=== PATIENT | female | born 1985 | race Native Hawaiian/Other Pacific Islander ===

== ENCOUNTER 2016-12-23 08:00 | Outpatient (CLI) | payer OTHER | END 2016-12-23 08:01 | disposition home or self-care (01) | DX: Z01.84 Encounter for antibody response examination (principal) ==

== ENCOUNTER 2017-11-03 08:00 | Outpatient (CLI) | payer OTHER | END 2017-11-03 08:01 | disposition home or self-care (01) | LOC: LAB.R 08:00 | PROVIDERS: ATTEND Obstetrics & Gynecology | DX: Z36.9 Encounter for antenatal screening, unspecified (principal) | CPT/HCPCS: 87491; 87591 ==

== ENCOUNTER 2017-12-09 08:00 | Outpatient (CLI) | payer OTHER ==
[2017-12-09 18:59] LABS: BASOPHILS # (AUTO) 0.1 10^3/uL (0.0-0.1); BASOPHILS % (AUTO) 0.5 %; EOSINOPHILS # (AUTO) 0.1 10^3/uL (0.0-0.7); EOSINOPHILS % (AUTO) 1.1 %; HGB - HEMOGLOBIN 12.8 g/dL (12.0-16.0); LYMPHOCYTES # (AUTO) 3.2 10^3/uL (1.5-3.5); LYMPHOCYTES % (AUTO) 24.8 %; MEAN CORPUSCULAR HEMOGLOBIN 29.9 pg (27.0-31.0); MEAN CORPUSCULAR HGB CONC 33.8 g/dL (32.0-36.0); MEAN CORPUSCULAR VOLUME 88.7 fL (81.0-99.0); MEAN PLATELET VOLUME 7.5 fL (7.9-10.8); MONOCYTES # (AUTO) 0.4 10^3/uL (0.0-1.0); MONOCYTES % (AUTO) 3.3 %; NEUTROPHILS % (AUTO) 70.3 %; PLT - PLATELET COUNT 351 10^3/uL (130-450); RED BLOOD COUNT 4.28 10^6/uL (4.20-5.40); RED CELL DISTRIBUTION WIDTH 12.9 % (12.0-15.0); WHITE BLOOD COUNT 12.8 x10^3/uL (4.8-10.8)
[2017-12-09 19:01] LABS: BILIRUBIN,URINE NEGATIVE (NEGATIVE); GLUCOSE, URINE (UA) NEGATIVE (NEGATIVE); KETONES,URINE (UA) NEGATIVE (NEGATIVE); LEUKOCYTE ESTERASE, URINE NEGATIVE (NEGATIVE); NITRITE,URINE NEGATIVE (NEGATIVE); OCCULT BLOOD,URINE TRACE-LYSE (NEGATIVE); PROTEIN,URINE NEGATIVE (NEGATIVE); UROBILINOGEN,URINE 0.2 (NORMAL) E.U./dL (NORMAL)
[2017-12-09 19:02] LABS: CLARITY,URINE CLEAR (CLEAR)
[2017-12-09 19:29] LABS: BACTERIA,URINE Rare /HPF (None Seen); RBC,URINE 0-5 /HPF (0-5); SQUAMOUS EPITHELIAL CELL,UR MOD Squamous (<= Few)
[2017-12-10 13:28] LABS: HEPATITIS B SURFACE ANTIGEN NON-REACTIVE (NON-REACTIVE); HEPATITIS C ANTIBODY NON-REACTIVE (NON-REACTIVE)
[2017-12-10 13:51] LABS: HIV AG/AB 4TH GEN NON-REACTIVE (NON-REACTIVE)
== END 2017-12-09 08:01 | disposition home or self-care (01) ==
LOC: LAB.N 08:00
PROVIDERS: ATTEND Obstetrics & Gynecology
DX: Z36.9 Encounter for antenatal screening, unspecified (principal); Z3A.08 8 weeks gestation of pregnancy
CPT/HCPCS: 36415; 81001; 81599; 85025; 86592; 86762; 86803; 86850; 86900; 86901; 87340; 87389

== ENCOUNTER 2018-01-28 12:09 | Outpatient (CLI) | payer OTHER ==
--- NOTE | 2018-01-30 14:50 | Ultrasound Report ---
OB ULTRASOUND: 01/28/2018 HISTORY: For screening. TECHNIQUE: Real-time scanning was performed with call center representative static images obtained. LAST MENSTRUAL PERIOD: 09/05/2017 Clinical Age: 20 weeks 5 days US Age: 21 weeks 1 day EFW Hadlock: 404 grams EFW% Hadlock: 70% Heart Rate: 150 bpm EDC: 06/12/2018 (LMP) US EDC: 06/09/2018 BPD Hadlock: 20 weeks 6 days; Mean mm 49 HC Hadlock: 21 weeks 0 days; Mean mm 187 AC Hadlock: 20 weeks 6 days; Mean mm 158 FL Hadlock: 21 weeks 4 days; Mean mm 36 Presentation: cephalic Placental Location: posterior Cervical Length: TA 4.4 cm Amniotic Fluid: subjectively normal; MVP 4.5 cm FINDINGS There is a single intrauterine gestation in cephalic presentation. heart rate 150 beats/min. Posterior placenta. The relationship of the placental edge and the cervix are not well seen due to head position and [place] contractions. Amniotic fluid volume is visually normal. Age by last menstrual period 20 weeks 5 days, concordant with the age by composite ultrasound measurements today of 21 weeks 1 day. MATTHIAS based on LMP is 06/12/2018. The intracranial contents, facial structures, spine, heart and outflow tracts, diaphragm, stomach, kidneys, bladder, 3-vessel cord and cord insertions, and all 4 extremities are well seen and no abnormalities are identified. The cervix is long and closed 4.4 cm. Ovaries and adnexal structures are unremarkable. There is a questionable small anterior uterine fibroid measuring 1.2 x 0.6 x 1.6 cm. IMPRESSION SINGLE INTRAUTERINE GESTATION, AGE BY COMPOSITE ULTRASOUND MEASUREMENTS TODAY 21 WEEKS 1 DAY WITH MATTHIAS BASED ON LMP OF 06/12/2018. NO ANATOMIC ABNORMALITIES ARE SEEN. THE RELATIONSHIP OF THE PLACENTA TO THE CERVIX IS OBSCURED ON THIS STUDY. SUGGEST REPEAT IMAGING LATER IN THE FOR ASSESSMENT. TD: 01/28/2018 16:27 [email or web address]
== END 2018-01-28 12:10 | disposition home or self-care (01) ==
LOC: DI 12:09
PROVIDERS: ATTEND Obstetrics & Gynecology
DX: Z36.9 Encounter for antenatal screening, unspecified (principal)
CPT/HCPCS: 76811

== ENCOUNTER 2018-03-17 11:32 | Outpatient (CLI) | payer OTHER ==
[2018-03-17 19:05] LABS: HGB - HEMOGLOBIN 12.1 g/dL (12.0-16.0); MEAN CORPUSCULAR HEMOGLOBIN 30.6 pg (27.0-31.0); MEAN CORPUSCULAR VOLUME 92.6 fL (81.0-99.0); MEAN PLATELET VOLUME 7.8 fL (7.9-10.8); RED BLOOD COUNT 3.96 10^6/uL (4.20-5.40); RED CELL DISTRIBUTION WIDTH 12.3 % (12.0-15.0); WHITE BLOOD COUNT 8.9 x10^3/uL (4.8-10.8)
== END 2018-03-17 11:33 | disposition home or self-care (01) ==
LOC: LAB.N 11:32
PROVIDERS: ATTEND Registered Nurse
DX: Z36.89 Encounter for other specified antenatal screening (principal)
CPT/HCPCS: 36415; 82950; 85027; 86850

== ENCOUNTER 2018-04-21 15:49 | Outpatient (CLI) | END 2018-04-21 15:50 | disposition home or self-care (01) ==

== ENCOUNTER 2018-04-30 12:48 | Outpatient (CLI) | payer OTHER ==
--- NOTE | 2018-04-30 14:23 | Ultrasound Report ---
Procedure Date: 04/30/2018 Accession Number: [id number] / [id number] Procedure: US - OB F/U or Repeat CPT Code: FULL RESULT: EXAM: OB F/U or Repeat DATE: 04/30/2018 2:13 PM CLINICAL HISTORY: GROWTH SCAN TECHNIQUE: Real-time scanning was performed with dermatology sales representative static images obtained. COMPARISON: 01/28/2018 Clinical Age: 34 weeks 2 days US Age: 33 weeks 1 days EFW Hadlock: 2124 grams EFW % Hadlock: 25.75% Heart Rate: 138 bpm EDC: 06/09/2018 US EDC: 06/17/2018 BPD Hadlock: 34 weeks 0 days; Mean mm 85 HC Hadlock: 33 weeks 3 days; Mean mm 301 AC Hadlock: 32 weeks 6 days; Mean mm 288 FL Hadlock: 33 weeks 2 days; Mean mm 64 Presentation: Vertex Placental Location: Posterior Cervical Length: 4.15 cm Amniotic Fluid: LUKE 12.00 cm; MVP 3.64 cm FINDINGS: There is a single viable intrauterine gestation, in vertex presentation. heart rate is 138 BPM. The placenta is posterior, without evidence of previa. Amniotic fluid volume is normal, with an LUKE of 12. By size, the fetus measures 33 weeks 1 day (34 weeks 2 days by previous sonogram). Estimated weight by Hadlock method is 2124 g, 26th percentile for gestational age by previous sonogram. No free fluid or adnexal lesion is appreciated. IMPRESSION: Single viable intrauterine gestation, with expected growth from previous sonogram. Normal LUKE.
== END 2018-04-30 12:49 | disposition home or self-care (01) ==
LOC: DI 12:48
PROVIDERS: ATTEND Obstetrics & Gynecology
DX: Z34.93 Encounter for supervision of normal pregnancy, unspecified, third trimester (principal); L29.9 Pruritus, unspecified
CPT/HCPCS: 36415; 76816; 80076; 82239

== ENCOUNTER 2018-04-30 14:17 | Outpatient (CLI) | payer OTHER ==
[2018-04-30 15:53] LABS: ALBUMIN 2.9 g/dL (3.2-5.5); BILIRUBIN,DIRECT 0.1 mg/dL (0.1-0.5); BILIRUBIN,TOTAL 0.4 mg/dL (0.2-1.0); TOTAL PROTEIN 6.3 g/dL (6.7-8.2)
== END 2018-04-30 14:18 | disposition home or self-care (01) ==
LOC: LAB 14:17
PROVIDERS: ATTEND Obstetrics & Gynecology
DX: L29.9 Pruritus, unspecified (principal)
CPT/HCPCS: 36415; 80076; 82239

== ENCOUNTER 2018-05-04 16:52 | Outpatient (CLI) | payer OTHER ==
[2018-05-04 17:05] VITALS: BP 105/65
== END 2018-05-04 17:30 | disposition home or self-care (01) ==
LOC: WFO 16:52 → FBP 17:08 → WFO 17:30
PROVIDERS: ATTEND Obstetrics & Gynecology
DX: O26.613 Liver and biliary tract disorders in pregnancy, third trimester (principal); K83.1 Obstruction of bile duct; Z3A.34 34 weeks gestation of pregnancy
CPT/HCPCS: 59025

== ENCOUNTER 2018-05-06 13:36 | Outpatient (CLI) | payer OTHER ==
[2018-05-06 19:42] LABS: ALBUMIN 2.8 g/dL (3.2-5.5); BILIRUBIN,DIRECT 0.1 mg/dL (0.1-0.5); BILIRUBIN,TOTAL 0.6 mg/dL (0.2-1.0); TOTAL PROTEIN 6.7 g/dL (6.7-8.2)
== END 2018-05-06 13:37 | disposition home or self-care (01) ==
LOC: LAB.N 13:36
PROVIDERS: ATTEND Obstetrics & Gynecology
DX: L29.9 Pruritus, unspecified (principal)
CPT/HCPCS: 36415; 80076; 82239

== ENCOUNTER 2018-05-07 16:32 | Outpatient (CLI) | payer OTHER ==
[2018-05-07 16:55] VITALS: BP 102/64
[2018-05-07] MEDS ORDERED: BETAMETHASONE 30 MG/5 ML VIAL IM ONE (17:23)
--- NOTE | 2018-05-11 14:17 | Ultrasound Report ---
Procedure Date: 05/07/2018 Accession Number: [id number] / [id number] Procedure: US - OB Biophysical Profile CPT Code: FULL RESULT: EXAM: OB biophysical profile. DATE: 05/07/2018 5:50 PM CLINICAL HISTORY: decreased movement TECHNIQUE: Real-time scanning was performed with manufacturers representative static images obtained. COMPARISON: Reference is made to the obstetric ultrasound dated 04/30/2018. FINDINGS: Single live intrauterine in vertex presentation with a posterior placenta and amniotic fluid index of 11.9 with MVP of 3.5 cm, a heart rate of 133 bpm by M-mode Doppler. The fetus scores a biophysical profile score of 8 based on presence of breathing, movements and tone by criteria as well as the presence of an amniotic fluid pocket measuring at least 2 cm deep and 1 cm wide. IMPRESSION: Normal biophysical profile.
== END 2018-05-07 18:20 | disposition home or self-care (01) ==
LOC: WFO 16:32 → FBP 16:35 → WFO 18:20
PROVIDERS: ATTEND Obstetrics & Gynecology
DX: O26.613 Liver and biliary tract disorders in pregnancy, third trimester (principal); Z3A.34 34 weeks gestation of pregnancy
CPT/HCPCS: 59025; 76819

== ENCOUNTER 2018-05-08 17:36 | Outpatient (CLI) | payer OTHER ==
[2018-05-08] MEDS ORDERED: BETAMETHASONE 30 MG/5 ML VIAL IM ONE (17:44)
== END 2018-05-08 17:52 | disposition home or self-care (01) ==
LOC: WFO 17:36 → FBP 17:40 → WFO 17:52
PROVIDERS: ATTEND Obstetrics & Gynecology
DX: Z34.83 Encounter for supervision of other normal pregnancy, third trimester (principal)
CPT/HCPCS: 96372

== ENCOUNTER 2018-05-11 16:47 | Outpatient (CLI) | payer OTHER ==
[2018-05-11 17:01] VITALS: BP 98/65
== END 2018-05-11 17:15 | disposition home or self-care (01) ==
LOC: WFO 16:47 → FBP 16:48 → WFO 17:15
PROVIDERS: ATTEND Obstetrics & Gynecology
DX: O26.613 Liver and biliary tract disorders in pregnancy, third trimester (principal); Z3A.35 35 weeks gestation of pregnancy
CPT/HCPCS: 59025

== ENCOUNTER 2018-05-14 14:18 | Outpatient (CLI) | payer OTHER ==
--- NOTE | 2018-05-15 13:05 | Ultrasound Report ---
Procedure Date: 05/14/2018 Accession Number: [id number] / [id number] Procedure: US - OB F/U or Repeat CPT Code: FULL RESULT: EXAM: FOLLOW-UP OBSTETRICAL ULTRASOUND EXAM DATE: 05/14/2018 04:27 PM. CLINICAL HISTORY: Follow-up growth, cholestasis. COMPARISON: OB F/U OR REPEAT 04/30/2018 OB BIOPHYSICAL PROFILE 05/07/2018. TECHNIQUE: Real-time sonographic evaluation of the fetus performed by the licensed appraiser. Multiple medical billing representative static images were saved for review. DATING: Established EGA 36 weeks 2 days with MATTHIAS 06/09/2018 based on prior ultrasound 01/28/2018.. EGA 35 weeks 1 day with MATTHIAS 06/17/2018 based on the current ultrasound. GENERAL EVALUATION Henning . Cardiac activity: 140 bpm. movement: Visualized. Presentation: Cephalic. Placenta: Posterior position. Amniotic fluid: Normal. LUKE 8.5 cm. MVP 3.7 cm. BIOMETRY Bi-Parietal Diameter (BPD): 8.6 cm, 34 weeks 5 days. Head Circumference (HC): 31.7 cm, 35 weeks 5 days. Abdominal Circumference (AC): 30.9 cm, 34 weeks 6 days. Femur Length (FL): 6.9 cm, 35 weeks 2 days. Estimated Weight: 2586 gm, 22 percentile for 36 weeks 2 days. Previous estimated weight: 2124 gm on 04/30/2018. ANATOMY Not evaluated. MATERNAL STRUCTURES The cervical length measures 4.4 cm. IMPRESSION: 1. Henning live intrauterine with gestational age 36 weeks 2 days based on previously established dates. 2. Estimated weight is within expected limits for assigned dating. 3. Normal interval growth compared to 04/30/2018. RADIA
== END 2018-05-14 14:19 | disposition home or self-care (01) ==
LOC: DI 14:18
PROVIDERS: ATTEND Obstetrics & Gynecology
DX: Z36.2 Encounter for other antenatal screening follow-up (principal)
CPT/HCPCS: 76816

== ENCOUNTER 2018-05-15 08:00 | Outpatient (CLI) | payer OTHER | END 2018-05-15 08:01 | disposition home or self-care (01) | LOC: LAB.R 08:00 | PROVIDERS: ATTEND Obstetrics & Gynecology | DX: Z36.9 Encounter for antenatal screening, unspecified (principal) | CPT/HCPCS: 87081 ==

== ENCOUNTER 2018-05-18 16:54 | Outpatient (CLI) | payer OTHER ==
[2018-05-18 17:07] VITALS: BP 105/65
== END 2018-05-18 17:50 | disposition home or self-care (01) ==
LOC: WFO 16:54 → FBP 16:57 → WFO 17:50
PROVIDERS: ATTEND Obstetrics & Gynecology
DX: O26.613 Liver and biliary tract disorders in pregnancy, third trimester (principal); K83.1 Obstruction of bile duct; Z3A.36 36 weeks gestation of pregnancy
CPT/HCPCS: 59025

== ENCOUNTER 2018-05-22 06:03 | Inpatient (IN) | payer OTHER ==
[2018-05-22] MEDS ORDERED: SODIUM CHLORIDE FLUSH 0.9% 10 ML SYRINGE IVP PRN (10:49)
[2018-05-22] MEDS ORDERED: DINOPROSTONE 10 MG SUPP VG ONE (10:49)
[2018-05-22] MEDS ORDERED: ONDANSETRON 4 MG/2 ML VIAL IVP PRN (10:49)
--- NOTE | 2018-05-22 10:55 | HISTORY & PHYSICAL EXAMINATION ---
Admit History - Instructions [place]/Slash: -Left hand click circles element as positive or present. -Right hand click slashes element as negative or not present. - Visit Reason Visit Reason: Other (Cholistasis of pregnency) - : 2 Parity: 1 Premature: 0 Ectopic: 0 : 0 Care: positive: [facility] Risk/History: negative: Labor induction Complications This : positive: Other (cholistasis of pregnency) Smoking Status: Never smoker - Mother's Labs Mother's Blood Type: positive: O Mother's RH: positive: Positive GBS: positive: Group B Step Negative Rubella Status: positive: Immune Meds/Allgy - Allergies Allergies/Adverse Reactions: Allergies Allergy/AdvReac Type Severity Reaction Status Date / Time No Known Drug Allergies Allergy Verified 02/27/16 15:04 Review of Systems - Constitutional Constitutional: reports: Other (C/O itching of the soles of the feet. minimal itching of her palms of her hands) - Eyes Eyes: denies: Pain, Irritation, Blurred vision - Ears, Nose & Throat Ears, Nose & Throat: denies: Ear pain, Hearing loss, Hearing aids - Cardiovascular Cariovascular: denies: Irregular heart rate, Palpitations, Chest pain - Respiratory Respiratory: denies: Cough, Sputum production, Wheezing - Gastrointestinal Gastrointestinal: denies: Abdominal pain, Constipation, Diarrhea - Genitourinary Genitourinary: denies: Dysuria - Neurological Neurological: denies: General weakness, Focal weakness - Psychiatric Psychiatric: denies: Depression Physical - Abdominal Exam Vital Signs: Temp Pulse Resp BP Pulse Ox 36.6 C 78 18 103/67 98 05/22/18 06:54 05/22/18 06:54 05/22/18 06:54 05/22/18 06:54 05/22/18 06:54 Contraction Intensity: positive: Mild Uterine Resting Tone: positive: Soft - Monitoring Heart Rate Baseline: 130-145 Strip Review: positive: Category I - Presentation Presentation: positive: Vertex - Vaginal Exam Membranes: positive: Membranes intact Dilation (in cm): 2 Effacement (%): 25 Station: positive: -2 Cervical Position: positive: Midposition - Other Notes Labor Progress Note/Additional Text: Pt has the Dx of cholistasis of . is 37.0 weeks and here for induction. Plan for Labor - Plan For Labor I expect patient to be DC'd or transferred within 96 hours.: Yes Plan for Labor: Pt is a 32 YO EDC 06/12/2018. 37.0 weeks Dx of Cholestasis of Pregnency. with total bile acids of 58. N0-19. She C/O itching of the sols of the Feet. She is here for cervical ripening and Delivery. H&P dictated. [id number]
--- NOTE | 2018-05-22 12:40 | PREOP HISTORY & PHYSICAL ---
DATE OF SERVICE: 05/22/2018 Physician: Jake Hancock MD IDENTIFICATION: The patient is a 32-year-old, G2, P1 female whose EDC is 06/12/2018. This makes her 37.0 weeks. CHIEF COMPLAINT: Cholestasis of . HISTORY OF PRESENT ILLNESS: The patient presented with complaints of itching of the soles of her feet with minimal itching of the palms. She had a total bile acid drawn, which was 58; normal is 0-19. For this reason, the diagnosis of cholestasis of was made. She has previously had an infant at 39 weeks without any incident. Labor lasted about 12 hours. She had an epidural for labor analgesia. She had a vacuum delivery. She states that her infant is doing well at this time. The patient started her OB care at 8 weeks. She has had multiple regular visits and has been seen throughout the entire . Her heart rate has remained in the normal rate. She has had blood pressures which have also been in the 110s to 112s, with diastolics in the 60s to 70s. The remainder of her course has been unremarkable. PAST MEDICAL HISTORY: The patient denies any hypertensive, diabetic, cardiac or pulmonary disease. PAST SURGICAL HISTORY: None. ALLERGIES: NONE KNOWN. CURRENT MEDICATIONS: vitamins. HABITS: The patient denies the use of alcohol, tobacco, street or addictive drugs. SOCIAL HISTORY: The patient is . Lives in a safe, stable environment with her and . PHYSICAL EXAMINATION VITAL SIGNS: Blood pressure today is noted to be in the normal range. HEENT: Pupils equal, round. Extraocular muscles are intact. Thyroid is not palpably enlarged. HEART: Regular rate and rhythm without murmurs. LUNGS: Lung guzman are clear without rales or wheezes. ABDOMEN: Soft with a gravid uterus. Vertex by Aldo's. The liver is nontender. PELVIC: Reveals a cervix which is 2 cm, which is increased from one from the previous exam, she is about 50% effaced. The cervix is soft and is mid to posterior vertex presentation. Cervidil was placed posterior to the cervix for cervical ripening. IMPRESSION 1. A 32-year-old, G2, P1, female, 37 weeks estimated gestational age. 2. Cholestasis of . PLAN: Will cervical ripen and induce at this time since she is 37 weeks. TD: 05/22/2018 11:27
[2018-05-22] MEDS: ACETAMINOPHEN 325 MG TABLET PO PRN ×2 (13:33→19:54)
[2018-05-22] MEDS: SODIUM CHLORIDE FLUSH 0.9% 10 ML SYRINGE IVP SCH ×2 (18:16→22:56)
[2018-05-22 18:26] LABS: BASOPHILS # (AUTO) 0.1 10^3/uL (0.0-0.1); BASOPHILS % (AUTO) 0.6 %; EOSINOPHILS # (AUTO) 0.1 10^3/uL (0.0-0.7); EOSINOPHILS % (AUTO) 0.8 %; HGB - HEMOGLOBIN 12.4 g/dL (12.0-16.0); LYMPHOCYTES # (AUTO) 2.3 10^3/uL (1.5-3.5); LYMPHOCYTES % (AUTO) 21.1 %; MEAN CORPUSCULAR HEMOGLOBIN 28.6 pg (27.0-31.0); MEAN CORPUSCULAR HGB CONC 32.3 g/dL (32.0-36.0); MEAN CORPUSCULAR VOLUME 88.6 fL (81.0-99.0); MEAN PLATELET VOLUME 7.7 fL (7.9-10.8); MONOCYTES # (AUTO) 0.5 10^3/uL (0.0-1.0); MONOCYTES % (AUTO) 4.9 %; NEUTROPHILS % (AUTO) 72.6 %; PLT - PLATELET COUNT 307 10^3/uL (130-450); RED BLOOD COUNT 4.32 10^6/uL (4.20-5.40); RED CELL DISTRIBUTION WIDTH 12.5 % (12.0-15.0)
--- NOTE | 2018-05-22 22:10 | PROVIDER PROGRESS NOTE ---
Labor Progress Note - Uterine Monitoring Uterine Monitoring Mode: positive: External toco : 1-5 Contraction Intensity: positive: Moderate Uterine Resting Tone: positive: Soft - Monitoring Monitor Mode: positive: External ultrasound Heart Rate Baseline: 120 Heart Rate Variability: positive: Moderate (6-25 bmp) Accelerations: positive: Present, 15x15 Decelerations: positive: None - Vaginal Exam Dilation (in cm): 5 Effacement (%): 75 Station: -1 Cervical Position: Midposition - Labor Progress Note Labor Progress Note/Additional Text: Excellent ripening. Cervidel removed. will allow ambian if progresses Epidural. Start pit in the AM
[2018-05-22] MEDS ORDERED: ZOLPIDEM 5 MG TABLET PO PRN (22:40)
[2018-05-22] MEDS: fentaNYL 100 MCG/2 ML VIAL IVP PRN (22:56)
[2018-05-23] MEDS: fentaNYL 100 MCG/2 ML VIAL IVP PRN (03:09)
[2018-05-23] MEDS ORDERED: LACTATED RINGERS 1,000 ML IV ONE (03:09)
[2018-05-23] MEDS ORDERED: OXYTOCIN/SODIUM CHLORIDE 500 ML IV ONE (03:17)
[2018-05-23] MEDS ORDERED: LIDOCAINE 1% 50 ML MDV ONE (03:37)
[2018-05-23] MEDS ORDERED: WITCH HAZEL/GLYCERIN 1 EACH MED..PAD TOP PRN (04:03)
[2018-05-23] MEDS ORDERED: OXYTOCIN/SODIUM CHLORIDE 250 ML IV SCH (04:03)
[2018-05-23] MEDS ORDERED: HYDROCORTISONE/PRAMOXINE 10 GM PR PRN (04:03)
[2018-05-23] MEDS ORDERED: oxyCODONE 5 MG TABLET PO PRN (04:03)
[2018-05-23] MEDS ORDERED: HYDROCORTISONE 1% CREAM 28 GM TUBE PR PRN (04:03)
[2018-05-23] MEDS ORDERED: diphenhydrAMINE 25 MG CAPSULE PO PRN (04:03)
--- NOTE | 2018-05-23 04:10 | DELIVERY NOTE ---
Delivery Note - Labor Labor: positive: Other (cytotec induced) - Delivery Method Delivery Method: positive: Spontaneous vaginal delivery - Cervical Ripening Method Cervical Ripening Method: positive: Prostaglandin E2 - Presentation Presentation: positive: Vertex, SOREN - left occiput anterior - Nuchal Cord Nuchal Cord: positive: Present (one loose) - Anesthetic Anesthetic Type: Anesthetic: positive: Lidocaine - 1% plain Volume: positive: Other (30 ml) - Amniotic Fluid Description Amniotic Fluid Description: positive: Clear - Episiotomy Type Episiotomy Type: positive: None - Laceration Laceration: positive: 2nd degree - Suture Suture Type: positive: Vicryl Suture Size: positive: 3-0 - Delivery Outcome Delivery Outcome: positive: Livebirth - Matteson: positive: Placed in direct skin contact with mother, Bulb syringe, Stimulated Matteson sex: positive: Male - Cord Cord: positive: 3 vessels - Placenta Placenta: positive: Intact, Spontaneous - Estimated Blood Loss Estimated Blood Loss (in cc): 300 - Post Delivery Events Post Delivery Events: positive: No post delivery events - Delivery Comments (Free Text/Narrative) Delivery Comments (Free Text/Narrative): Pt had a cytotec cervical ripening at 11:00this AM it was removed at 2218. at that time her Cx was 5/75%/-1. She was allowed to labor with the intention of pacing an epidural. she was checked at 0300 and noted to be 7/100%/0. Calls were placed to Ob and Anaesthesia. I arrived at 0314 as the head was delivering. Head SOREN with a nucal cord times one which was reduced prior to delivery. cord stopped pulsating then cut. Placenta Delivered intact. Second degree laceration was repaired in layers with 3-0 vicril. Live Male infant Apgars 9/9, weight 6 lb 5.0 oz.
[2018-05-23] MEDS ORDERED: LACTATED RINGERS 1,000 ML IV SCH (05:00)
[2018-05-23] MEDS: IBUPROFEN 600 MG TABLET PO SCH ×4 (05:11→23:43)
[2018-05-23 06:44] LABS: HGB - HEMOGLOBIN 9.8 g/dL (12.0-16.0); MEAN CORPUSCULAR HEMOGLOBIN 28.8 pg (27.0-31.0); MEAN CORPUSCULAR HGB CONC 32.4 g/dL (32.0-36.0); MEAN CORPUSCULAR VOLUME 88.9 fL (81.0-99.0); MEAN PLATELET VOLUME 7.2 fL (7.9-10.8); RED BLOOD COUNT 3.41 10^6/uL (4.20-5.40); RED CELL DISTRIBUTION WIDTH 12.3 % (12.0-15.0); WHITE BLOOD COUNT 12.4 x10^3/uL (4.8-10.8)
[2018-05-23] MEDS: DOCUSATE SODIUM 100 MG CAPSULE PO SCH ×2 (08:06→19:53)
[2018-05-23] MEDS: ACETAMINOPHEN 325 MG TABLET PO PRN ×3 (08:07→19:53)
[2018-05-24] MEDS: ACETAMINOPHEN 325 MG TABLET PO PRN (04:16)
[2018-05-24] MEDS: IBUPROFEN 600 MG TABLET PO SCH (06:56)
[2018-05-24] MEDS: DOCUSATE SODIUM 100 MG CAPSULE PO SCH (09:00)
--- NOTE | 2018-05-24 09:38 | PROVIDER PROGRESS NOTE ---
Subjective - Prog Note Date Prog Note Date: 05/24/18 Prog Note Time: 09:36 - Subjective Pt reports feeling: Improved (0/10 pain voiding, eating, .) Objective - Vital Signs/Intake & Output Reviewed Vital Signs: Yes Vital Signs: Vital Signs x48h Temp Pulse Resp BP Pulse Ox 05/24/18 08:00 36.6 C 72 18 104/57 L 05/24/18 04:00 36.8 C 69 18 97/56 L 100 Intake & Output: Intake & Output 05/21/18 05/22/18 05/23/18 05/24/18 23:59 23:59 23:59 23:59 Intake Total 1510 Output Total 300 Balance 1210 - Objective General Appearance: positive: No acute distress, Alert Respiratory: positive: Chest non-tender, No respiratory distress, Breath sounds nml Cardiovascular: positive: Regular rate & rhythm, No murmur, No gallop Abdomen: positive: Non-tender, No organomegaly, Mass (u-3) - Lab Results Fish Bones: 05/23/18 06:34 Assessment/Plan - Problem List (1) (spontaneous vaginal delivery) Impression: Pt is doing excellent. will Discharge today.
--- NOTE | 2018-05-24 09:41 | Discharge Plan ---
Discharge Plan Disposition: 01 Home, Self Care Condition: Good Diet: Regular Activity Restrictions: Pelvic rest Shower Restrictions: No Driving Restrictions: No (No driving while on narcotics) Weight Bearing: Full Weight No Smoking: If you smoke, Please STOP! Call for help. Follow-up with: Jake Hancock MD [Provider Admit Priv/Credential] -
[2018-05-24 11:00] VITALS: BP 100/58
--- NOTE | 2018-05-24 16:36 | DISCHARGE SUMMARY ---
Physician: Jake Hancock MD DATE OF ADMISSION: 05/22/2018 DATE OF DISCHARGE: 05/24/2018 ADMITTING DIAGNOSES 1. A 37-week gestation. 2. Cholestasis of . DISCHARGE DIAGNOSES 1. A 37-week gestation. 2. Cholestasis of . 3. Nuchal cord PROCEDURE PERFORMED 1. Cervical ripening with Cervidil. 2. Spontaneous vaginal delivery. PRESENTING HISTORY: Patient is a 32-year-old G2, P1 female whose due date was 06/12/2018. This makes her 37 weeks. Her was complicated with itching of the soles of the feet as well as the palms of the hand. She had total bile acids drawn, which was 58 , normal was 0-19. For this reason, she had multiple NSTs and the decision to induce at 37 was made. On admission, her cervix was noted to be 2 cm, 25% and -1. LABORATORIES: On admission, her white count was 11, hemoglobin was 12.4, hematocrit was 38.2, platelets were 307. On the , her white count was 12.4, her hemoglobin was 9.8, hematocrit was 30.3, and platelets were 253. HOSPITAL COURSE: Patient is admitted. Cervidil was placed. She developed contractions which are mild in nature. Twelve hours later, her Cervidil was removed and at 3 in the morning, she reached complete and delivered a live male , Apgars 9 and 9, weighing 6 pounds and 5 ounces. There was a nuchal cord noted at time of delivery. Her blood loss was noted to be roughly 300 mL. Her course has been unremarkable. Her itching had resolved. Her pain is 0/10. She is being discharged to home. MEDICATIONS Discharge medications are those of: 1. Oxycodone 5 mg #10. 2. Motrin 600 mg #30. 3. Colace 100 mg #30. She has been instructed regarding and signs of mastitis. She has been informed that is not an adequate contraception. At this point, she is considering the use of Nexplanon for contraception. She will be following up in the office in 6 weeks. TD: 05/24/2018 09:52 IMAN
== END 2018-05-24 10:50 | disposition home or self-care (01) | DRG 775 ==
LOC: WFO 06:03 → FBP 06:27 → WFO 06:29 → FBP 06:30 → OBSVTOIN 23:42
PROVIDERS: ADMIT Obstetrics & Gynecology; ATTEND Obstetrics & Gynecology
PROC: 10E0XZZ Delivery of Products of Conception, External Approach (ICD-10-PCS; principal; 2018-05-23)
PROC: 0KQM0ZZ Repair Perineum Muscle, Open Approach (ICD-10-PCS; 2018-05-23)
DX: O26.62 Liver and biliary tract disorders in childbirth (principal); K83.1 Obstruction of bile duct; O69.81X0 Labor and delivery complicated by cord around neck, without compression, not applicable or unspecified; O70.1 Second degree perineal laceration during delivery; Z37.0 Single live birth; Z3A.37 37 weeks gestation of pregnancy
CPT/HCPCS: 36415; 59200; 82239; 85025; 85027; 96374

== ENCOUNTER 2019-06-15 08:00 | Outpatient (CLI) | payer OTHER ==
--- NOTE | 2019-06-16 08:22 | XRAY Report ---
Reason: CHEST PAIN Procedure Date: 06/15/2019 Accession Number: [id number] / [id number] Procedure: WCP - Chest 2 View X-Ray CPT Code: 14981 FULL RESULT: EXAM: CHEST RADIOGRAPHY 2 VIEWS EXAM DATE: 06/15/2019. CLINICAL HISTORY: Chest pain. COMPARISON: PA and lateral chest on 01/02/2017.. TECHNIQUE: PA and lateral views. FINDINGS: Lungs/Pleura: Normal vasculature. The lungs are clear. No pleural fluid or pneumothorax. Mediastinum: Normal cardiac and mediastinal contours. Bones: Minimal upper thoracic dextroconvex scoliosis, 8 degrees. IMPRESSION: No radiographic cardiopulmonary abnormality. No change in 01/02/2017. RADIA
== END 2019-06-15 23:59 | disposition home or self-care (01) ==
LOC: DI.WCP 08:00 → EDSTATUS 13:14 → DI.WCP 23:59
PROVIDERS: ATTEND Family Medicine
DX: R07.9 Chest pain, unspecified (principal)
CPT/HCPCS: 71046

== ENCOUNTER 2019-06-18 08:00 | Outpatient (CLI) | payer OTHER ==
[2019-06-18 12:52] LABS: BASOPHILS % (AUTO) 0.7 %; EOSINOPHILS # (AUTO) 0.1 10^3/uL (0.0-0.7); EOSINOPHILS % (AUTO) 2.1 %; HGB - HEMOGLOBIN 13.8 g/dL (12.0-16.0); LYMPHOCYTES # (AUTO) 2.5 10^3/uL (1.5-3.5); LYMPHOCYTES % (AUTO) 42.6 %; MEAN CORPUSCULAR HEMOGLOBIN 28.7 pg (27.0-31.0); MEAN CORPUSCULAR HGB CONC 32.1 g/dL (32.0-36.0); MEAN CORPUSCULAR VOLUME 89.4 fL (81.0-99.0); MEAN PLATELET VOLUME 9.6 fL (7.9-10.8); MONOCYTES # (AUTO) 0.3 10^3/uL (0.0-1.0); MONOCYTES % (AUTO) 4.8 %; NEUTROPHILS # (AUTO) 2.9 10^3/uL (1.5-6.6); NEUTROPHILS % (AUTO) 49.6 %; PLT - PLATELET COUNT 302 10^3/uL (130-450); RED BLOOD COUNT 4.81 10^6/uL (4.20-5.40); RED CELL DISTRIBUTION WIDTH 12.2 % (12.0-15.0); WHITE BLOOD COUNT 5.8 x10^3/uL (4.8-10.8)
[2019-06-18 13:29] LABS: ALBUMIN 4.3 g/dL (3.2-5.5); ALBUMIN/GLOBULIN RATIO 1.2 (1.0-2.2); ALKALINE PHOSPHATASE 56 IU/L (42-121); ALT ALANINE AMINOTRANSFERASE 14 IU/L (10-60); AST ASPARTATE AMINOTRANSFERASE 22 IU/L (10-42); BILIRUBIN,TOTAL 0.6 mg/dL (0.2-1.0); BUN - BLOOD UREA NITROGEN 10 mg/dL (6-20); CALCIUM 9.2 mg/dL (8.5-10.3); CARBON DIOXIDE - CO2 24 mmol/L (21-32); CHLORIDE 104 mmol/L (101-111); CHOL/HDL RATIO 1.8 (<4.4); CHOLESTEROL 131 mg/dL; CREATININE 0.5 mg/dL (0.4-1.0); GFR - MDRD 141 (>89); GLUCOSE 88 mg/dL (70-100); HDL CHOLESTEROL 73 mg/dL; LDL CHOLESTEROL,CALCULATED 45 mg/dL; LDL/HDL RATIO 0.6 (<4.4); SODIUM 140 mmol/L (135-145); TOTAL PROTEIN 7.9 g/dL (6.7-8.2); VLDL CHOLESTEROL 13 mg/dL
== END 2019-06-18 23:59 | disposition home or self-care (01) ==
LOC: LAB.WCP 08:00
PROVIDERS: ATTEND Family Medicine
DX: R07.9 Chest pain, unspecified (principal); R53.83 Other fatigue
CPT/HCPCS: 36415; 80053; 80061; 83721; 84443; 84702; 85025

== ENCOUNTER 2019-07-28 08:39 | Outpatient (CLI) | payer OTHER ==
--- NOTE | 2019-07-28 15:58 | CARDIAC PROCEDURE NOTE ---
DATE OF SERVICE: 07/28/2019 Physician: Radha Stanley MD, [facility] INDICATION: Chest pain. CARDIAC RISK FACTORS: None. DESCRIPTION OF PROCEDURE: After signing informed consent, the patient underwent a Fadi-protocol treadmill stress test with Echo imaging at rest and after exercise. Resting heart rate: 64. Peak heart rate: 182 (97% predicted maximum heart rate for age). Resting blood pressure: 110/80. Peak blood pressure: 120/80. The patient exercised for 4 minutes and 35 seconds on a Fadi-protocol treadmill stress test. She achieved a peak heart rate of 182 (97% predicted maximum heart rate for age) and 7.1 METs. The patient had mild to moderate shortness of breath at peak and rated her exertion at 13/20 on a Heavenly scale at peak. There was no chest discomfort during the entire test. Oxygen saturation at rest: 99%. Oxygen saturation at peak: 98%, then dropped to 91% in the supine position at peak heart rate (during Echo imaging). Oxygen saturation at 3 minutes of recovery, sittin%. RESTING ELECTROCARDIOGRAM: Normal sinus rhythm and early repolarization in leads V2 and V3. ELECTROCARDIOGRAM AT PEAK: T-wave flattening in leads II, III, aVF, and V2 through V6. These returned to baseline after 1 minute of recovery. SUMMARY 1. Normal resting electrocardiogram. 2. Fair exercise tolerance. 3. Abnormal desaturation at peak heart rate in the supine position (during Echo imaging). 4. Nonspecific EKG changes develop with exercise. 5. Echo images reported separately. 6. Patient's coronary risk: Low-moderate cc: Asif Nunez DO TD: 07/28/2019 15:37 [facility]
== END 2019-07-28 08:40 | disposition home or self-care (01) ==
LOC: DI 08:39
PROVIDERS: ATTEND Family Medicine
DX: R07.9 Chest pain, unspecified (principal)
CPT/HCPCS: 93350

== ENCOUNTER 2021-04-26 10:17 | Outpatient (CLI) | payer OTHER ==
[2021-04-26 17:53] LABS: BASOPHILS % (AUTO) 0.8 %; EOSINOPHILS # (AUTO) 0.1 10^3/uL (0.0-0.7); HCT - HEMATOCRIT 40.7 % (37.0-47.0); LYMPHOCYTES # (AUTO) 2.2 10^3/uL (1.5-3.5); LYMPHOCYTES % (AUTO) 44.9 %; MEAN CORPUSCULAR HEMOGLOBIN 29.7 pg (27.0-31.0); MEAN CORPUSCULAR HGB CONC 31.9 g/dL (32.0-36.0); MEAN CORPUSCULAR VOLUME 92.9 fL (81.0-99.0); MEAN PLATELET VOLUME 9.9 fL (7.9-10.8); MONOCYTES # (AUTO) 0.2 10^3/uL (0.0-1.0); MONOCYTES % (AUTO) 4.7 %; NEUTROPHILS # (AUTO) 2.4 10^3/uL (1.5-6.6); NEUTROPHILS % (AUTO) 48.4 %; PLT - PLATELET COUNT 284 10^3/uL (130-450); RED BLOOD COUNT 4.38 10^6/uL (4.20-5.40); RED CELL DISTRIBUTION WIDTH 12.2 % (12.0-15.0); WHITE BLOOD COUNT 4.9 x10^3/uL (4.8-10.8)
[2021-04-26 18:16] LABS: ALBUMIN 4.7 g/dL (3.2-5.5); ALBUMIN/GLOBULIN RATIO 1.5 (1.0-2.2); ALKALINE PHOSPHATASE 51 IU/L (42-121); ALT ALANINE AMINOTRANSFERASE 21 IU/L (10-60); AST ASPARTATE AMINOTRANSFERASE 26 IU/L (10-42); BILIRUBIN,TOTAL 1.1 mg/dL (0.2-1.0); BUN - BLOOD UREA NITROGEN 6 mg/dL (6-20); CALCIUM 9.3 mg/dL (8.5-10.3); CARBON DIOXIDE - CO2 27 mmol/L (21-32); CHLORIDE 104 mmol/L (101-111); CHOLESTEROL 141 mg/dL; CREATININE 0.6 mg/dL (0.4-1.0); GFR - MDRD 113 (>89); GLUCOSE 82 mg/dL (70-100); HDL CHOLESTEROL 71 mg/dL; LDL CHOLESTEROL,CALCULATED 50 mg/dL; LDL/HDL RATIO 0.7 (<4.4); POTASSIUM 3.6 mmol/L (3.5-5.0); SODIUM 137 mmol/L (135-145); TOTAL PROTEIN 7.9 g/dL (6.7-8.2); TRIGLYCERIDES 101 mg/dL; VLDL CHOLESTEROL 20 mg/dL
[2021-04-26 18:27] LABS: THYROID STIMULATING HORMONE 2.63 uIU/mL (0.34-5.60)
[2021-04-27 11:53] LABS: HEPATITIS B SURFACE ANTIGEN NON-REACTIVE (NON-REACTIVE)
[2021-04-27 12:06] LABS: HEPATITIS C ANTIBODY NON-REACTIVE (NON-REACTIVE)
== END 2021-04-26 23:59 | disposition home or self-care (01) ==
LOC: LAB.WCP 10:17
PROVIDERS: ATTEND Physician Assistant Medical
DX: Z00.00 Encounter for general adult medical examination without abnormal findings (principal); R53.83 Other fatigue; K52.9 Noninfective gastroenteritis and colitis, unspecified
CPT/HCPCS: 36415; 80053; 80061; 81599; 82306; 82607; 83516; 83721; 84443; 85025; 86255; 86317; 86704; 86709; 86803; 87340

== ENCOUNTER 2022-07-01 15:35 | Emergency (ER) | payer OTHER ==
[2022-07-01 15:59] LABS: BASOPHILS # (AUTO) 0.1 10^3/uL (0.0-0.1); BASOPHILS % (AUTO) 0.8 %; EOSINOPHILS # (AUTO) 0.1 10^3/uL (0.0-0.7); EOSINOPHILS % (AUTO) 1.8 %; HCT - HEMATOCRIT 39.9 % (37.0-47.0); HGB - HEMOGLOBIN 13.7 g/dL (12.0-16.0); LYMPHOCYTES # (AUTO) 2.3 10^3/uL (1.5-3.5); LYMPHOCYTES % (AUTO) 35.4 %; MEAN CORPUSCULAR HEMOGLOBIN 30.7 pg (27.0-31.0); MEAN CORPUSCULAR HGB CONC 34.3 g/dL (32.0-36.0); MEAN CORPUSCULAR VOLUME 89.5 fL (81.0-99.0); MEAN PLATELET VOLUME 9.1 fL (7.9-10.8); MONOCYTES # (AUTO) 0.3 10^3/uL (0.0-1.0); NEUTROPHILS # (AUTO) 3.7 10^3/uL (1.5-6.6); NEUTROPHILS % (AUTO) 56.8 %; PLT - PLATELET COUNT 294 10^3/uL (130-450); RED BLOOD COUNT 4.46 10^6/uL (4.20-5.40); RED CELL DISTRIBUTION WIDTH 11.2 % (12.0-15.0); WHITE BLOOD COUNT 6.6 x10^3/uL (4.8-10.8)
--- NOTE | 2022-07-01 16:11 | XRAY Report ---
PROCEDURE: Chest 1 View X-Ray INDICATIONS: Chest pain TECHNIQUE: One view of the chest was acquired. COMPARISON: None. FINDINGS: Surgical changes and devices: None. Lungs and pleura: No pleural effusions or pneumothorax. Lungs are clear. Mediastinum: Mediastinal contours appear normal. Heart size is normal. Bones and chest wall: No suspicious bony lesions. Overlying soft tissues appear unremarkable. IMPRESSION: No acute cardiopulmonary abnormality. Reviewed by: Gavin Wiggins MD on 07/01/2022 3:10 PM ROM[facility]N Approved by: Gavin Wiggins MD on 07/01/2022 3:10 PM ROM[facility]N Station ID: [id number]
[2022-07-01 16:16] LABS: ALBUMIN 4.5 g/dL (3.2-5.5); ALBUMIN/GLOBULIN RATIO 1.3 (1.0-2.2); CALCIUM 9.4 mg/dL (8.5-10.3); CREATININE 0.6 mg/dL (0.4-1.0); POTASSIUM 3.4 mmol/L (3.5-5.0)
--- NOTE | 2022-07-01 17:00 | ED Physician Documentation ---
PD HPI DYSPNEA - Stated complaint Stated Complaint: SOA - Chief complaint Chief Complaint: Cardiac - History obtained from History obtained from: Patient - History of Present Illness Timing - onset: Last night Timing - onset during: Sleep Timing - duration: Weeks (has noted feeling of dyspnea with lying down at night the past 7-10 days, worse the past 2 nights. feels okay getting up in morning and no dyspnea with activity during day. Feeling of tightness and pressure on chest lying. NO recent URI. no edema.) Timing - details: Gradual onset, Intermittant Inciting event(s): No: URI, Immobilization/travel Improved by: Sitting up Worsened by: Laying flat. No: Exertion Associated symptoms: Chest pain / discomfort. No: Fever, Cough, Hemoptysis, Wheezing, Palpitations, Bilateral edema Similar symptoms before: Has not had sx before Recently seen: Not recently seen Review of Systems Constitutional: denies: Fever, Chills Nose: reports: Rhinorrhea / runny nose. denies: Congestion Throat: denies: Sore throat Respiratory: reports: Dyspnea, Cough (mild nonproductive) GI: denies: Nausea, Vomiting, Diarrhea Skin: denies: Rash, Lesions Musculoskeletal: denies: Extremity swelling Neurologic: denies: Generalized weakness, Near syncope PD PAST MEDICAL HISTORY - Past Medical History Cardiovascular: None Respiratory: None Neuro: None Endocrine/Autoimmune: None - Present Medications Home Medications: Ambulatory Orders Medication Instructions Recorded Confirmed Famotidine [Pepcid] 20 mg PO BID #20 tablet 07/01/22 dexAMETHasone [Decadron] 4 mg PO DAILY #5 tablet 07/01/22 - Allergies Allergies/Adverse Reactions: Allergies Allergy/AdvReac Type Severity Reaction Status Date / Time No Known Drug Allergies Allergy Verified 07/01/22 15:45 - Living Situation Living Situation: reports: With spouse/s.o. Living Arrangement: reports: At home - Social History Does the pt smoke?: No Smoking Status: Never smoker Does the pt drink ETOH?: No Does the pt have substance abuse?: No PD ED PE NORMAL - Vitals Vital signs reviewed: Yes - General General: Alert and oriented X 3, No acute distress, Well developed/nourished - HEENT HEENT: Moist mucous membranes, Pharynx benign - Neck Neck: Supple, no meningeal sign, No adenopathy - Cardiac Cardiac: RRR, No murmur, No rub - Respiratory Respiratory: No respiratory distress, Clear bilaterally - Abdomen Abdomen: Soft, Non tender - Derm Derm: Normal color, Warm and dry - Extremities Extremities: No tenderness to palpate, Normal ROM s pain, No edema, No calf tenderness / cord - Neuro Neuro: Alert and oriented X 3, No motor deficit, No sensory deficit, Normal speech - Psych Psych: Normal mood, Normal affect Results - Vitals Vitals: Oxygen O2 Source Room air - EKG (time done) 15:43 Rate: Rate (enter#) (67) Rhythm: NSR [place]: Normal Intervals: Normal [place] QRS: Normal Ischemia: Normal ST segments. No: ST elevation c/w ischemia, ST depression Compare to prior EKG: Old EKG unavailable - Labs Labs: Laboratory Tests 07/01/22 07/01/22 07/01/22 15:54 15:54 15:54 WBC 6.6 RBC 4.46 Hgb 13.7 Hct 39.9 MCV 89.5 MCH 30.7 MCHC 34.3 RDW 11.2 L Plt Count 294 MPV 9.1 Neut # (Auto) 3.7 Lymph # (Auto) 2.3 [place] # (Auto) 0.3 Eos # (Auto) 0.1 Baso # (Auto) 0.1 Absolute Nucleated RBC 0.00 Nucleated RBC % 0.0 Sodium 138 Potassium 3.4 L Chloride 103 Carbon Dioxide 27 Anion Gap 8.0 BUN 11 Creatinine 0.6 Estimated GFR (MDRD) 112 Glucose 99 Calcium 9.4 Total Bilirubin 1.0 AST 23 ALT 18 Alkaline Phosphatase 53 Troponin I High Sens 2.5 B-Natriuretic Peptide Total Protein 8.0 Albumin 4.5 Globulin 3.5 Albumin/Globulin Ratio 1.3 Lipase 35 07/01/22 15:54 WBC RBC Hgb Hct MCV MCH MCHC RDW Plt Count MPV Neut # (Auto) Lymph # (Auto) [place] # (Auto) Eos # (Auto) Baso # (Auto) Absolute Nucleated RBC Nucleated RBC % Sodium Potassium Chloride Carbon Dioxide Anion Gap BUN Creatinine Estimated GFR (MDRD) Glucose Calcium Total Bilirubin AST ALT Alkaline Phosphatase Troponin I High Sens B-Natriuretic Peptide 21 Total Protein Albumin Globulin Albumin/Globulin Ratio Lipase - Rads (name of study) chest xray Radiology: Prelim report reviewed (no acute process), See rad report PD MEDICAL DECISION MAKING - ED course Complexity details: reviewed results, re-evaluated patient (consider RAD with some bronchial tightness enhanced with lying position. Reflex also consideration. ), considered differential (chest tightness only with lying down at night. Consider reflux, CHF, effusion among other things. ), d/w patient Departure - Departure Disposition: 01 Home, Self Care Clinical Impression: Dyspnea Condition: Stable Record reviewed to determine appropriate education?: Yes Instructions: ED Dyspnea Shortness of Breath Prescriptions: dexAMETHasone [Decadron] 4 mg PO DAILY #5 tablet Famotidine [Pepcid] 20 mg PO BID #20 tablet Comments: Your EKG, chest x-ray, blood tests are normal without any signs of heart attack/heart failure/fluid around the lungs or heart/pneumonia/anemia/collapsed lung. At this point considerations would be environmental allergies and reactive airway (asthma). I would suggest using your albuterol inhaler 2 puffs 3-4 times daily for the next several days to week. Also Decadron steroid daily for 5 more days to help with airway inflammation. Other consideration would be based on your symptoms the possibility of reflux and esophageal irritation. I would suggest famotidine acid reducing medicine twice daily for the next 7 to 10 days. Also use antacid such as Maalox or Octavia nta particularly at bedtime and see if your symptoms are better. Recheck if not improving well over the next several days to a week. Return if worse. I sent your prescriptions to [facility] pharmacy in [place]. Discharge Date/Time: 07/01/22 18:07
[2022-07-01] MEDS ORDERED: CHERRY SYRUP 10 ML UDC PO ONE (17:42)
[2022-07-01] MEDS ORDERED: MAG HYDROX/AL HYDROX/SIMETH 30 ML UDC PO STA (17:42)
[2022-07-01] MEDS ORDERED: FAMOTIDINE 20 MG TABLET PO STA (17:42)
[2022-07-01] MEDS ORDERED: DEXAMETHASONE 10 MG/ML VIAL PO STA (17:42)
[2022-07-01 17:52] VITALS: BP 118/62
== END 2022-07-01 18:07 | disposition home or self-care (01) ==
LOC: ED 15:35
DX: R06.09 Other forms of dyspnea (principal)
CPT/HCPCS: 36415; 71045; 80053; 83690; 83880; 84484; 85025; 93005; 99284; A9270

== ENCOUNTER 2022-08-21 13:29 | Outpatient (CLI) | payer OTHER ==
[2022-08-21 18:36] LABS: THYROID STIMULATING HORMONE 2.03 uIU/mL (0.34-5.60)
[2022-08-21 18:51] LABS: CHOL/HDL RATIO 1.9 (<4.4); CHOLESTEROL 148 mg/dL; HDL CHOLESTEROL 77 mg/dL; LDL CHOLESTEROL,CALCULATED 62 mg/dL; LDL/HDL RATIO 0.8 (<4.4); TRIGLYCERIDES 46 mg/dL; VLDL CHOLESTEROL 9 mg/dL
== END 2022-08-21 13:30 | disposition home or self-care (01) ==
LOC: LAB.N 13:29
PROVIDERS: ATTEND Nurse Practitioner Family
DX: Z00.00 Encounter for general adult medical examination without abnormal findings (principal)
CPT/HCPCS: 36415; 80061; 83721; 84443

== ENCOUNTER 2023-01-24 10:57 | Outpatient (CLI) | payer OTHER | END 2023-01-24 10:58 | disposition home or self-care (01) | LOC: LAB.N 10:57 | PROVIDERS: ATTEND Nurse Practitioner | DX: R76.11 Nonspecific reaction to tuberculin skin test without active tuberculosis (principal) | CPT/HCPCS: 81599; 86480 ==

== ENCOUNTER 2023-02-12 11:49 | Outpatient (CLI) | payer OTHER ==
--- NOTE | 2023-02-12 17:45 | XRAY Report ---
PROCEDURE: Chest 2 View X-Ray INDICATIONS: QUANTIFERON GOLD POSITIVE TECHNIQUE: 2 views of the chest were acquired. COMPARISON: 07/01/2022 FINDINGS: Surgical changes and devices: None. Lungs and pleura: No pleural effusions or pneumothorax. Lungs are clear. Mediastinum: Mediastinal contours appear normal. Heart size is normal. Bones and chest wall: No suspicious bony lesions. Overlying soft tissues appear unremarkable. IMPRESSION: Normal two-view chest x-ray. No evidence of active tuberculosis Reviewed by: Bro Larios MD on 02/12/2023 4:44 PM AKDT Approved by: Bro Larios MD on 02/12/2023 4:44 PM AKDT Station ID: [id number]
== END 2023-02-12 11:50 | disposition home or self-care (01) ==
LOC: DI 11:49
PROVIDERS: ATTEND Nurse Practitioner
DX: R76.11 Nonspecific reaction to tuberculin skin test without active tuberculosis (principal)

== ENCOUNTER 2023-10-07 13:01 | Outpatient (CLI) | payer BC ==
--- NOTE | 2023-10-08 12:23 | Ultrasound Report ---
LIMITED ULTRASOUND OF LEFT BREAST: 10/07/2023 CLINICAL: Palpable left breast lump. No prior exams were available for comparison. Color flow ultrasound of the left breast 2 o'clock region was performed. Lane scale images of the r eal-time examination were reviewed. No significant abnormalities were seen sonographically in the left breast. Specifically, no finding to correspond to the patient's palpable abnormality. IMPRESSION: NEGATIVE There is no sonographic correlate to the patient's palpable abnormality and no evidence of malignancy . Return to annual mammogram screening schedule is recommended. Findings and recommendations were conveyed to the patient at time of exam. This exam was interpreted at Station ID: [id number]. Electronically Signed By: Robina wilson/:10/07/2023 14:03:52 letter sent: No_Letter Ultrasound BI-RADS: 1 Negative BI-RADS CATEGORY: (1) - 1 RECOMMENDATION: (ANNUAL) - Recommend routine annual screening mammography. [id number] return to screening LATERALITY: (B)
--- NOTE | 2023-10-08 12:23 | Mammography Report ---
BILATERAL DIGITAL DIAGNOSTIC MAMMOGRAM 3D/2D WITH EXAGGERATED CC: 10/07/2023 CLINICAL: Baseline exam. Palpable left breast lump. No prior exams were available for comparison. Both breasts are heterogeneously dense, which may obscure small masses (category c / 51-75% glandular tissue). No significant masses, calcifications, or other findings are seen in either breast. Specifically, no finding to correspond to the patient's palpable abnormality. Mammograms are otherwise normal. IMPRESSION: INCOMPLETE: NEEDS ADDITIONAL IMAGING EVALUATION Bilateral mammograms are normal. There is no abnormality seen in the left breast to correspond with the palpable abnormality in the up per outer quadrant. Ultrasound is recommended for full evaluation of this area. This was performed immediately following this exam. Based on the Tyrer Cuzick model (a risk assessment model) the patients lifetime risk is 14.1% and he r 10 year risk is 1.6%. According to the ACR, ACS, and NCCN guidelines, an annual breast MRI exam starr ng with mammogram is recommended if the patients lifetime risk is 20% or greater. This exam was interpreted at Station ID: [id number]. NOTE: For mammograms, a report in lay terms will be sent to the patient. Approximately 15% of breast malignancies will not be visualized mammographically. In the management of a palpable breast mass, a negative mammogram must not discourage biopsy of a clinically suspicious lesion. Electronically Signed By: Robina wilson/:10/07/2023 13:45:09 ACR BI-RADS Category 0: Incomplete 3340F PARENCHYMAL PATTERN: (D) - The breast(s) demonstrate(s) heterogeneously dense fibroglandular parbenjamin bullard. BI-RADS CATEGORY: (0) - 0 Ultrasound [id number] Immediate follow-up LATERALITY: (B)
== END 2023-10-07 13:02 | disposition home or self-care (01) ==
LOC: DI 13:01
PROVIDERS: ATTEND Physician Assistant Medical
DX: N63.21 Unspecified lump in the left breast, upper outer quadrant (principal); R92.333 Mammographic heterogeneous density, bilateral breasts